=== PATIENT | male | born 1995 | race African-American/Black ===

== ENCOUNTER 2018-02-19 11:28 | Emergency (ER) | payer BC ==
[~2018-02-19] VITALS: Ht 180.3 cm; Wt 116.1 kg
--- NOTE | 2018-02-19 11:41 | ED Chest Pain ---
General Stated Complaint: CHEST PAIN Source: patient Exam Limitations: no limitations History of Present Illness Date Seen by Provider: Feb 19, 2018 Time Seen by Provider: 11:39 Initial Comments To ER with reports of sharp left-sided chest pain that began earlier today about 10 AM. He states he was under some stress at school as he didn't do as well and some testing as he had wished 2. He cannot identify any modifying factors that alleviated or worsened the pain. He does have some associated shortness of breath. He states this was a sharp pounding sensation is still present rated 4 out of 10. No history of this. He does have a family history of heart disease stating that his dad of hypertrophic cardiomyopathy. However he has had echocardiogram the heart himself which was unremarkable. Timing/Duration: 1-3 hours Severity/Quality: moderate Location: other ( fifth intercostal space just medial to the nipple) Radiation: no radiation Activities at Onset: none ASA po DIRECTOR OF GROUP SALES: No NTG SL DIRECTOR OF GROUP SALES: No Associated Symptoms: No nausea/vomiting Allergies and Home Medications Allergies Coded Allergies: No Known Drug Allergies (Unverified , 02/19/18) Home Medications No Active Prescriptions or Reported Meds Patient Home Medication List Home Medication List Reviewed: Yes Review of Systems Review of Systems Constitutional: see HPI EENTM: No Symptoms Reported Respiratory: See HPI; Denies Cough; Shortness of Air Cardiovascular: See HPI, Chest Pain Gastrointestinal: No Symptoms Reported Genitourinary: No Symptoms Reported Musculoskeletal: no symptoms reported Skin: no symptoms reported Psychiatric/Neurological: No Symptoms Reported Endocrine: No Symptoms Reported Physical Exam Vital Signs Vital Signs - First Documented 02/19/18 11:35 Temp 97.4 Pulse 73 Resp 18 B/P (MAP) 144/98 (113) Pulse Ox 98 O2 Delivery Room Air Capillary Refill : Height, Weight, BMI Height: '" Weight: lbs. oz. kg; BMI Method: General Appearance: No Apparent Distress, WD/WN HEENT: PERRL/EOMI, TMs Normal Neck: Full Range of Motion, Normal Inspection Respiratory: Chest Non Tender, Lungs Clear, Normal Breath Sounds, No Accessory Muscle Use, No Respiratory Distress Cardiovascular: Regular Rate, Rhythm, Normal Peripheral Pulses Gastrointestinal: Normal Bowel Sounds, Non Tender, Soft Extremity: Normal Capillary Refill, Normal Inspection Neurologic/Psychiatric: Alert, Oriented x3 Skin: Normal Color, Warm/Dry Progress/Results/Core Measures Results/Orders Lab Results Laboratory Tests Test 02/19/18 12:05 Range/Units White Blood Count 4.5 4.3-11.0 10^3/uL Red Blood Count 5.32 4.35-5.85 10^6/uL Hemoglobin 16.0 13.3-17.7 G/DL Hematocrit 46 40-54 % Mean Corpuscular Volume 86 80-99 FL Mean Corpuscular Hemoglobin 30 25-34 PG Mean Corpuscular Hemoglobin Concent 35 32-36 G/DL Red Cell Distribution Width 13.7 10.0-14.5 % Platelet Count 237 130-400 10^3/uL Mean Platelet Volume 9.9 7.4-10.4 FL Neutrophils (%) (Auto) 66 42-75 % Lymphocytes (%) (Auto) 20 12-44 % Monocytes (%) (Auto) 10 0-12 % Eosinophils (%) (Auto) 3 0-10 % Basophils (%) (Auto) 1 0-10 % Neutrophils # (Auto) 2.9 1.8-7.8 X 10^3 Lymphocytes # (Auto) 0.9 L 1.0-4.0 X 10^3 Monocytes # (Auto) 0.4 0.0-1.0 X 10^3 Eosinophils # (Auto) 0.1 0.0-0.3 10^3/uL Basophils # (Auto) 0.0 0.0-0.1 10^3/uL D-Dimer 0.86 H 0.00-0.49 UG/ML Sodium Level 141 135-145 MMOL/L Potassium Level 4.4 3.6-5.0 MMOL/L Chloride Level 105 98-107 MMOL/L Carbon Dioxide Level 27 21-32 MMOL/L Anion Gap 9 5-14 MMOL/L Blood Urea Nitrogen 10 7-18 MG/DL Creatinine 1.23 0.60-1.30 MG/DL Estimat Glomerular Filtration Rate > 60 BUN/Creatinine Ratio 8 Glucose Level 98 70-105 MG/DL Calcium Level 9.7 8.5-10.1 MG/DL Troponin I < 0.30 <0.30 NG/ML My Orders Orders - ANETA ANGEL APRN Fibrin Degradation Products (02/19/18 11:38) Cbc With Automated Diff (02/19/18 11:38) Basic Metabolic Panel (02/19/18 11:38) Troponin I (02/19/18 11:38) Ekg Tracing (02/19/18 11:38) Chest Pa/Lat (2 View) (02/19/18 11:38) Ct Angio Chest W (02/19/18 12:31) Iohexol Injection (Omnipaque 350 Mg/Ml 1 (02/19/18 12:45) Ns (Ivpb) (Sodium Chloride 0.9%) (02/19/18 12:45) Medications Given in ED Current Medications Medications Dose Ordered Sig/Hunter Route Start Time Stop Time Status Last Admin Dose Admin Iohexol 150 ml ONCE ONCE IV 02/19/18 12:45 02/19/18 12:46 DC 02/19/18 13:02 140 ML Sodium Chloride 250 ml ONCE ONCE IV 02/19/18 12:45 02/19/18 12:46 DC 02/19/18 13:02 80 ML Vital Signs/I&O 02/19/18 02/19/18 11:35 11:35 Temp 97.4 Pulse 73 Resp 18 B/P (MAP) 144/98 (113) Pulse Ox 98 O2 Delivery Room Air Departure Impression Primary Impression: Chest wall pain Disposition: HOME, SELF-CARE Condition: Stable Departure-Patient Inst. Decision time for Depature: 13:34 Referrals: NO,LOCAL PHYSICIAN (PCP/Family) Primary Care Physician Patient Instructions: Chest Pain That Is Not Caused by the Heart (DC) Add. Discharge Instructions: 1. Return to ER for any concerns 2. Tylenol Motrin for pain 3. Follow-up with your doctor next week Scripts No Active Prescriptions or Reported Meds Work/School Note: Work Release Form Date Seen in the Emergency Department: Feb 19, 2018 Return to Work: Feb 20, 2018 ANETA ANGEL APRN Feb 19, 2018 11:41
--- NOTE | 2018-02-19 12:05 | Diagnostic Imaging Report ---
INDICATION: Chest pain. PA and lateral views of the chest are obtained. COMPARISON: No previous study is available for comparison at this time. FINDINGS: Heart size and pulmonary vasculature are within normal limits, and the lungs are clear, bilaterally. IMPRESSION: Unremarkable chest. Dictated by: Dictated on workstation # [id number]
[2018-02-19 12:12] LABS: BASOPHILS % (AUTO) 1 % (0-10); EOSINOPHILS # (AUTO) 0.1 10^3/uL (0.0-0.3); EOSINOPHILS % (AUTO) 3 % (0-10); HEMATOCRIT 46 % (40-54); LYMPHOCYTES # (AUTO) 0.9 X 10^3 (1.0-4.0); LYMPHOCYTES % (AUTO) 20 % (12-44); MEAN CORPUSCULAR HEMOGLOBIN 30 PG (25-34); MEAN CORPUSCULAR HGB CONC 35 G/DL (32-36); MEAN CORPUSCULAR VOLUME 86 FL (80-99); MEAN PLATELET VOLUME 9.9 FL (7.4-10.4); MONOCYTES # (AUTO) 0.4 X 10^3 (0.0-1.0); MONOCYTES % (AUTO) 10 % (0-12); NEUTROPHILS # (AUTO) 2.9 X 10^3 (1.8-7.8); NEUTROPHILS % (AUTO) 66 % (42-75); PLATELET COUNT 237 10^3/uL (130-400); RED BLOOD COUNT 5.32 10^6/uL (4.35-5.85); RED CELL DISTRIBUTION WIDTH 13.7 % (10.0-14.5); WHITE BLOOD COUNT 4.5 10^3/uL (4.3-11.0)
[2018-02-19 12:26] LABS: BUN/CREATININE RATIO 8; CALCIUM 9.7 MG/DL (8.5-10.1); CARBON DIOXIDE 27 MMOL/L (21-32); CHLORIDE 105 MMOL/L (98-107); CREATININE SERUM 1.23 MG/DL (0.60-1.30); GFR ESTIMATED > 60; GLUCOSE 98 MG/DL (70-105); POTASSIUM 4.4 MMOL/L (3.6-5.0); SODIUM 141 MMOL/L (135-145)
[2018-02-19] MEDS ORDERED: IOHEXOL 350 MG/ML 150 ML (OMNIPAQUE 350) VIAL IV ONE (12:45)
[2018-02-19] MEDS ORDERED: NS 250 ML (IVPB) BAG IV ONE (12:45)
--- NOTE | 2018-02-19 13:41 | Diagnostic Imaging Report ---
PROCEDURE: CT angiography of the chest with contrast. TECHNIQUE: Multiple contiguous axial images were obtained through the chest after uneventful bolus administration of intravenous contrast. 2D reconstructed CTA MIP acquisitions were also performed. INDICATION: Chest pain, shortness of breath. Lungs are clear. There are no effusions or pneumothoraces. The aorta appears normal. There are no pulmonary emboli. There is no hilar or mediastinal lymphadenopathy. IMPRESSION: Negative CTA chest. Dictated by: Dictated on workstation # [id number]
[2018-02-19 13:46] VITALS: BP 136/78
== END 2018-02-19 13:46 | disposition home or self-care (01) ==
LOC: EDUNIT# 11:28 → ER 11:29
DX: R07.89 Other chest pain (principal); Z82.49 Family history of ischemic heart disease and other diseases of the circulatory system
CPT/HCPCS: 36415; 71046; 71275; 80048; 84484; 85025; 85379; 93005